=== PATIENT | female | born 1985 | race Caucasian/White ===

== ENCOUNTER → 2017-10-12 09:09 | Outpatient (CLI) | payer MEDICAID, SELFPAY ==
--- NOTE | 2017-10-12 09:12 | US_ITS ---
STUDY: ULTRASOUND BREAST - LEFT REASON FOR EXAM: Female, 31 years old. Pain in the left breast. TECHNIQUE: Axial and longitudinal images of the LEFT breast were performed with a high resolution ultrasound transducer. COMPARISON: Comparison is made with prior mammogram done earlier today. FINDINGS: LEFT Breast: The lateral aspect of the left breast was examined by ultrasound. There is homogeneous fibroglandular tissue. No solid or cystic mass lesion is seen. US/Breast Limited Unilateral IMPRESSION: Unremarkable sonographic examination of the lateral aspect of the left breast. ASSESSMENT CATEGORY: BIRADS Category 1: Negative. A letter regarding these results will be sent to the patient by the facility within 30 days. Electronically Signed: Marko Martinez MD at 11:24 EDT Tel [phone], Service support ,
--- NOTE | 2017-10-12 09:12 | BI_ITS ---
MAMMOGRAPHY - BILATERAL DIAGNOSTIC REASON FOR EXAM: Female, 31 years old. Left lateral breast tenderness. Prior left breast biopsy. PERTINENT HISTORY: Grandmother with breast cancer. TECHNIQUE: Digital bilateral breast elis (3D mammographic acquisition) in the CC and MLO projections. 2-D mediolateral oblique (MLO) and craniocaudad (CC) views of both breasts were obtained. CAD: Full Field Digital Mammography with Computer Added Detection was performed. COMPARISON: None. Baseline examination. FINDINGS: Breast Composition: The breasts are heterogeneously dense, which may obscure small masses. There are no dominant masses or suspicious calcifications. No other significant abnormalities are identified. BI/DIAG MAMM W/CAD, BILAT IMPRESSION: Negative diagnostic mammogram. With the patient's history of left lateral breast tenderness, correlation with ultrasound is recommended. ASSESSMENT CATEGORY: BIRADS Category 0: Incomplete. Need additional imaging evaluation. A letter regarding these results will be sent to the patient by the facility within 30 days. Approximately 10% of breast cancers are not detected by mammography. A normal mammogram should not delay biopsy of a clinically suspicious abnormality. Electronically Signed: Marko Martinez MD at 10:19 EDT Tel [phone], Service support ,
== END ==
PROVIDERS: Visit Provider Obstetrics & Gynecology
DX: N63.0 Unspecified lump in unspecified breast (principal)
CPT/HCPCS: 76642; 77062; 77066; G0279

== ENCOUNTER 2018-03-10 20:09 | Emergency (ER) | payer MEDICAID, SELFPAY ==
[2018-03-10 20:11] VITALS: BP 157/92; PULSE 88; RESP 18; TEMP 35.5; O2SAT 99; BMI 30.5
--- NOTE | 2018-03-10 20:25 | RAD_ITS ---
STUDY: X-RAY CHEST REASON FOR EXAM: Female, 32 years old. Dyspnea and hypertension TECHNIQUE: PA and lateral COMPARISON: None. FINDINGS: The lungs are clear and expanded. There is no demonstrated pleural abnormality. Normal size heart. Normal mediastinum and momo. Normal visualized pulmonary arteries. Normal visualized aortic arch and descending thoracic aorta. Normal visualized thoracic spine. Normal visualized ribs, clavicles, and shoulders. There is no demonstrated abnormality of the visualized soft tissue structures of the upper abdomen. RAD/Chest PA and Lateral IMPRESSION: Normal x-ray examination of the chest. Electronically Signed: Bakari Michele MD at 21:22 EST , Service support ,
--- NOTE | 2018-03-10 20:25 | EKG12_ITS ---
Test Reason : HTN Blood Pressure : / mmHG Vent. Rate : 091 BPM Atrial Rate : 091 BPM P-R Int : 134 ms QRS Dur : 088 ms QT Int : 356 ms P-R-T Axes : 050 022 029 degrees QTc Int : 437 ms Normal sinus rhythm Normal ECG Confirmed by LIANNA MAR, SALVADOR ([id number]), electronic news gathering editor BARI TRAVIS ([id number]) on 03/12/2018 2:30:17 PM Referred By: HERMELINDA Confirmed By:SALVADOR DSOUZA MD
[2018-03-10 20:38] VITALS: BP 124/92; PULSE 93; RESP 22; O2SAT 98
[2018-03-10 20:47] LABS: Absolute Lymphocyte Count 2.96 X10^3/ul (0.83-4.51); Absolute Neutrophil Count 3.6 X10^3/uL (2.0-7.7); Basophil# 0.03 X10^3/uL; Basophil% 0.4 % (0-1); Eosinophil# 0.12 X10^3/uL; Eosinophils% 1.6 % (0-5); Hematocrit 37.4 % (37-47); Hemoglobin 12.1 g/dl (12.0-15.0); Lymphocyte # 2.96 X10^3/ul (4.0); Lymphocyte % 40.3 % (19-41); Mean Corp Hgb Conc 32.4 g/gl (32-36); Mean Corpuscular Hgb 28.7 pg (27.0-32.0); Mean Corpuscular Volume 88.8 fL (81-99); Mean Platelet Vol. 10.1 fl (6.2-12.0); Monocyte# 0.67 X10^3/uL; Monocyte% 9.1 % (0-10); Neutrophil # 3.56 X10^3/uL (2.7-7.7); Neutrophil % 48.6 % (47-70); Platelet Count 296 K/mm3 (150-450); RBC Distribution Width CV 12.6 % (11.6-14.6); RBC Distribution Width SD 40.4 fl (35.1-43.9); Red Blood Count 4.21 M/mm3 (4.2-5.4); White Blood Count 7.3 K/mm3 (4.4-11.0)
[2018-03-10 20:50] LABS: POSITIVE COUNT NO; POSITIVE DIFFERENTIAL NO; POSITIVE MORPHOLOGY NO
[2018-03-10 20:58] LABS: D-Dimer Quantitative (DVT/PE) 0.33 FEU/ug/m (0.27-0.49)
[2018-03-10 20:59] LABS: BUN 9 mg/dL (7-18); Creatinine, Serum 0.57 mg/dL (0.55-1.02); Estimated Creatinine Clearance 135.24 ml/min; Glucose 90 mg/dL (74-106)
--- NOTE | 2018-03-10 20:59 | ED.VISSUMM ---
- ER Visit Summary Date of Service: 03/10/18 Chief Complaint: [Hypertension] History of Present Illness: The patient is a 32 F [presents the emergency department complaint of hypertension that she noticed today while at work. Patient states that she felt somewhat short of breath and decided to check her blood pressure and noted that it was elevated patient then had it repeated and at one point it was as high as 173/122. Patient states that she is intermittently checked her blood pressure over the last year and it would get as high as 140 systolic. Patient currently not being treated for hypertension. 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 Patient denies any recent illness. She denies any shortness of breath currently. She has not had any recent travel or surgery. Patient states that she was advised by her superiors at work to get evaluated.] Physical Examination: [HEENT-PERRLA, EOMI. Cranial nerves II through XII grossly intact. TMs clear. Mucous membranes moist. No adenopathy. Cardiovascular-regular rate and rhythm without murmur or ectopy Lungs-clear to auscultation, chest wall stable without crepitus or subcu emphysema Abdomen-normoactive bowel sounds, soft, nontender, no rebound or rigidity, no peritoneal signs. Extremities-intact ?4, normal range of motion, normal pulses, atraumatic] Test Results: [EKG obtained arrival shows sinus rhythm with a ventricular rate of 91 bpm with no acute I segment changes. CBC with differential was normal. Chemistries unremarkable. D-dimer was normal 0.33. Chest x-ray was normal.] Emergency Department Course and Treatment: [No treatment in the emergency department. Without any treatment her current blood pressure is 124/92.] Treatment Plan: [Patient advised to keep a journal of her blood pressures over the next week and to only check her blood pressure twice a day once in the morning and once in the evening. Patient also advised to follow-up with her primary care physician then to determine if any antihypertensives would be warranted.] Disposition: [Discharged home in stable condition] Impression: [Hypertension] This note was generated with [employer] software. It may contain incorrect words, spelling, and punctuation that were not noted in review of the chart prior to signing ED Disposition - Plan for ED Patient: Chief Complaint: Hypertension Referrals: Johnson Degroot MD [Primary Care Provider] -
[2018-03-10 21:00] LABS: Anion Gap 5 (5-15); BUN/Creat Ratio 15.7 RATIO (10-20); Calcium,Total 8.6 mg/dL (8.5-10.1); Chloride 107 mmol/L (98-107); EST Glomerular Filtration Rate 128 mL/min (>60); Est Glom Filt Rate - Afr Amer 155 mL/min (>60); Potassium 3.5 mmol/L (3.5-5.1); Sodium Level 140 mmol/L (136-145)
--- NOTE | 2018-03-10 21:02 | ED.DEP ---
ED Disposition - Plan for ED Patient: Chief Complaint: Hypertension Instructions: ED Hypertension Poss Referrals: Johnson Degroot MD [Primary Care Provider] - 5-7 Days
[2018-03-10 21:06] VITALS: BP 119/88; PULSE 81; RESP 20; O2SAT 98
[2018-03-10 21:12] VITALS: BP 119/88; PULSE 81; RESP 19; O2SAT 98
--- OUTSIDE RECORDS SUMMARY | 2018-05-06 04:37 | XMS RPT_ITS ---
:1985 Author Organization [facility] Care Team Providers Name Role Phone Primay Care Physicia, No Primary Care Unavailable Jamal Mane Attending Unavailable Kenan Buckley Attending Unavailable Primay Care Physicia, No Primary Care Unavailable Luis Angel Pickard Attending Unavailable Johnson Degroot Primary Care Unavailable PROBLEMS PROBLEMS DATE TYPE CONDITION / CODE ATTENDING STATUS SOURCE 04/28/2017 Unknown K04.7 - Inge Maneo Active [place] Periapical Community abscess without Hospital sinus / Repository K04.7(ICD-10) PROCEDURES PROCEDURES No Procedure Records FoundRESULTS RESULTS 12 LEAD ELECTROCARDIOGRAM Observed: 03/12/2018 Status: F Source: [place] 2:30 PM [facility] REPOSITORY [facility] Cardiovascular Services [address] [place] [address] 12 Lead EKG 03/10/182032 MR#: [id number] Acct: [id number] Name: FABBY RIVERO Rep #: [id number] : 1985 32 From: Suhail Dsouza MD Attending Dr: Status: DEP ER Ordering Dr: Luis Angel Pickard DO Date: 03/10/18 Location: ED Sex: F C Admitted: Test Reason : HTN Blood Pressure : / mmHG Vent. Rate : 091 BPM Atrial Rate : 091 BPM P-R Int : 134 ms QRS Dur : 088 ms QT Int : 356 ms P-R-T Axes : 050 022 029 degrees QTc Int : 437 ms Normal sinus rhythm Normal ECG Confirmed by SUHAIL DSOUZA MD ([id number]), medical transcription editor BARI TRAVIS ([id number]) on 03/12/2018 2:30:17 PM Referred By: HERMELINDA Confirmed By:SUHAIL DSOUZA MD 03/12/18 1430 Date Suhail Dsouza MD CC: Johnson Degroot MD; Luis Angel Pickard DO Signed EMERGENCY DEPARTMENT Observed: 03/10/2018 Status: F Source: [place] SUMMARY 9:02 PM [facility] REPOSITORY [facility] Medical Records Department [address] [place] [address] Emergency Department Summary 03/10/182058 MR#: [id number] Acct: [id number] Name: FABBY RIVERO Rep #: [id number] : 1985 32 From: Luis Angel Pickard DO PCP: Johnson Degroot MD Status: REG ER - ER Visit Summary Date of Service: 03/10/18 Chief Complaint: [Hypertension] History of Present Illness: The patient is a 32 F [presents the emergency department complaint of hypertension that she noticed today while at work. Patient states that she felt somewhat short of breath and decided to check her blood pressure and noted that it was elevated patient then had it repeated and at one point it was as high as 173/122. Patient states that she is intermittently checked her blood pressure over the last year and it would get as high as 140 systolic. Patient currently not being treated for hypertension. 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 Patient denies any recent illness. She denies any shortness of breath currently. She has not had any recent travel or surgery. Patient states that she was advised by her superiors at work to get evaluated.] Physical Examination: [HEENT-PERRLA, EOMI. Cranial nerves II through XII grossly intact. TMs clear. Mucous membranes moist. No adenopathy. Cardiovascular-regular rate and rhythm without murmur or ectopy Lungs-clear to auscultation, chest wall stable without crepitus or subcu emphysema Abdomen-normoactive bowel sounds, soft, nontender, no rebound or rigidity, no peritoneal signs. Extremities-intact 4, normal range of motion, normal pulses, atraumatic] Test Results: [EKG obtained arrival shows sinus rhythm with a ventricular rate of 91 bpm with no acute I segment changes. CBC with differential was normal. Chemistries unremarkable. D-dimer was normal 0.33. Chest x-ray was normal.] Emergency Department Course and Treatment: [No treatment in the emergency department. Without any treatment her current blood pressure is 124/92.] Treatment Plan: [Patient advised to keep a journal of her blood pressures over the next week and to only check her blood pressure twice a day once in the morning and once in the evening. Patient also advised to follow-up with her primary care physician then to determine if any antihypertensives would be warranted.] Disposition: [Discharged home in stable condition] Impression: [Hypertension] This note was generated with Inverted Edge dictation software. It may contain incorrect words, spelling, and punctuation that were not noted in review of the chart prior to signing ED Disposition - Plan for ED Patient: Chief Complaint: Hypertension Referrals: Johnson Degroot MD [Primary Care Provider] - What to do if you have Problems For any increased pain, shortness of breath, bleeding, nausea or vomiting, chest pain, or any unexpected problems, contact your Primary Care Provider. Call [facility] ([phone]) or report to the closest Emergency Room. Call 911 if necessary. 03/10/182101 <Electronically signed by Luis Angel Pickard DO> Date Luis Angel Pickard DO Cosigner Signature (If Indicated): Date CC: Johnson Degroot MD DISCHARGE INSTRUCTION Observed: 03/10/2018 Status: F Source: RIK 9:02 PM [facility] REPOSITORY [facility] Medical Records Department [address] [place] [address] Discharge Instruction 03/10/182101 MR#: [id number] Acct: [id number] Name: FABBY RIVERO Rep #: [id number] : 1985 32 From: Luis Angel Pickard DO PCP: Johnson Degroot MD Status: REG ER ED Disposition - Plan for ED Patient: Chief Complaint: Hypertension Instructions: ED Hypertension Poss Referrals: Johnson Degroot MD [Primary Care Provider] - 5-7 Days What to do if you have Problems For any increased pain, shortness of breath, bleeding, nausea or vomiting, chest pain, or any unexpected problems, contact your Primary Care Provider. Call [facility] ([phone]) or report to the closest Emergency Room. Call 911 if necessary. 03/10/182101 <Electronically signed by Luis Angel Pickard DO> Date Luis Angel Pickard DO Cosigner Signature (If Indicated): Date CC: Johnson Degroot MD CBC W/DIFF, AUTOMATED Collected: 03/10/2018 Status: F Source: RIK 8:35 PM [facility] REPOSITORY TYPE CODE TESTS RESULT OUT OF RANGE REFERENCE UNITS LAB L100.1000 4.4-11.0 K/mm3 Normal WBC 7.3 LAB L100.1200 4.2-5.4 M/mm3 Normal RBC 4.21 LAB L100.1300 12.0-15.0 g/dl Normal HGB 12.1 LAB L100.1400 37-47 % Normal HCT 37.4 LAB L100.1500 81-99 fL Normal MCV 88.8 LAB L100.1600 27.0-32.0 pg Normal MCH 28.7 LAB L100.1700 32-36 g/gl Normal MCHC 32.4 LAB L100.1810 11.6-14.6 % Normal RDW CV 12.6 LAB L100.1820 35.1-43.9 fl Normal RDW SD 40.4 LAB L100.1900 150-450 K/mm3 Normal PLT 296 LAB L100.2000 6.2-12.0 fl Normal MPV 10.1 LAB L100.2100 47-70 % Normal NEUT% 48.6 LAB L100.2200 19-41 % Normal LY% 40.3 LAB L100.2300 0-10 % Normal MONO% 9.1 LAB L100.2400 0-5 % Normal EO% 1.6 LAB L100.2500 0-1 % Normal BASO% 0.4 LAB L100.2550 0.0-0.9 % Normal IM GRAN % 0.000 Result Comment: IG% - Immature Granulocytes (promyelocytes, myelocytes and metamyelocytes) > 1% indicates that a LEFT SHIFT is Present. LAB L100.2620 2.0-7.7 X10 3/uL Normal Absolute Neut 3.6 LAB L100.2720 0.83-4.51 X10 3/ul Normal Absolute Lymph 2.96 Performed By: #### L100.0100 #### [facility] [address] [place], [place], [id number] D-DIMER QUANTITATIVE Collected: 03/10/2018 Status: F Source: RIK (DVT/PE) 8:35 PM [facility] REPOSITORY TYPE CODE TESTS RESULT OUT OF RANGE REFERENCE UNITS LAB L300.8000 0.27-0.49 FEU/ug/m Normal D-DIMER 0.33 QUANT Result Comment: NORMAL D-Dimer level (<0.50) indicates no DVT or PE. Performed By: #### L300.8000 #### [facility] [address] [place], [place], [id number] BASIC METABOLIC Collected: 03/10/2018 Status: F Source: RIK PROFILE (BMP) 8:35 PM [facility] REPOSITORY TYPE CODE TESTS RESULT OUT OF RANGE REFERENCE UNITS LAB L501.0100 74-106 mg/dL Normal GLU 90 Result Comment: Please note revised GLUCOSE reference range effective 2017. LAB L501.1000 7-18 mg/dL Normal BUN 9 LAB L501.1100 0.55-1.02 mg/dL Normal CREAT,SERUM 0.57 Result Comment: The validity of the calculated GFR AND GFRAA in patients over 70 years has not been determined. Clinical correlation is essential. LAB L501.1110 >60 mL/min Normal EST GFR 128 Result Comment: Non- GFR Calc LAB L501.1115 >60 mL/min Normal EST GFR - AA 155 Result Comment: GFR Calc LAB L501.1255 ml/min Normal Estimated CRCL 135.24 LAB L501.1300 10-20 RATIO BUN/CRE Normal 15.7 LAB L501.2200 8.5-10 mg/dL .1 CA Normal 8.6 LAB L501.5300 136-14 mmol/L 5 NA Normal 140 LAB L501.5600 3.5-5. mmol/L 1 K Normal 3.5 LAB L501.5900 98-107 mmol/L CL Normal 107 LAB L501.6100 21.0-3 mmol/L 2.0 CO2 Normal 28.0 LAB L501.6200 5-15 GAP Normal 5 Performed By: #### L500.2500 #### [facility] [address] [place], [address] CHEST PA AND LATERAL Observed: 03/10/2018 Status: F Source: [place] 8:26 PM [facility] REPOSITORY [facility] Imaging Services [address] [place] [address] Chest PA and Lateral MR#: [id number] Acct: [id number] Name: FABBY RIVERO Rep #: [id number] : 1985 F 32 From: Bakari Michele MD PCP: Johnson Degroot MD Status: DEP ER Study: Chest PA and Lateral Date of Exam: 03/10/18 Exam# [id number] Ordering Dr: Luis Angel Pickard DO STUDY: X-RAY CHEST REASON FOR EXAM: Female, 32 years old. Dyspnea and hypertension TECHNIQUE: PA and lateral COMPARISON: None. FINDINGS: The lungs are clear and expanded. There is no demonstrated pleural abnormality. Normal size heart. Normal mediastinum and momo. Normal visualized pulmonary arteries. Normal visualized aortic arch and descending thoracic aorta. Normal visualized thoracic spine. Normal visualized ribs, clavicles, and shoulders. There is no demonstrated abnormality of the visualized soft tissue structures of the upper abdomen. RAD/Chest PA and Lateral IMPRESSION: Normal x-ray examination of the chest. Electronically Signed: Bakari Michele MD at 21:22 EST , Service support , CC: Johnson Degroot MD; Luis Angel Pickard DO Casting Technician: Signed DIAG MAMM W/CAD, Observed: 10/12/2017 Status: F Source: RIK BILAT 9:13 AM [facility] REPOSITORY [facility] Imaging Services [address] [place] [address] DIAG MAMM W/CAD, BILAT MR#: [id number] Acct: [id number] Name: FABBY RIVERO Rep #: [id number] : 1985 F 31 From: Marko Martinez MD PCP: Care Physician, No Primary Status: [facility] CLI Study: DIAG MAMM W/CAD, BILAT Date of Exam: 10/12/17 Exam# [id number] Ordering Dr: Kenan Buckley MD MAMMOGRAPHY - BILATERAL DIAGNOSTIC REASON FOR EXAM: Female, 31 years old. Left lateral breast tenderness. Prior left breast biopsy. PERTINENT HISTORY: Grandmother with breast cancer. TECHNIQUE: Digital bilateral breast elis (3D mammographic acquisition) in the CC and MLO projections. 2-D mediolateral oblique (MLO) and craniocaudad (CC) views of both breasts were obtained. CAD: Full Field Digital Mammography with Computer Added Detection was performed. COMPARISON: None. Baseline examination. FINDINGS: Breast Composition: The breasts are heterogeneously dense, which may obscure small masses. There are no dominant masses or suspicious calcifications. No other significant abnormalities are identified. BI/DIAG MAMM W/CAD, BILAT IMPRESSION: Negative diagnostic mammogram. With the patient's history of left lateral breast tenderness, correlation with ultrasound is recommended. ASSESSMENT CATEGORY: BIRADS Category 0: Incomplete. Need additional imaging evaluation. A letter regarding these results will be sent to the patient by the facility within 30 days. Approximately 10% of breast cancers are not detected by mammography. A normal mammogram should not delay biopsy of a clinically suspicious abnormality. Electronically Signed: Marko Martinez MD at 10:19 EDT Tel [phone], Service support , CC: No Primary Care Physician; Kenan Buckley MD Casting Technician: Signed BREAST LIMITED Observed: 10/12/2017 Status: F Source: RIK UNILATERAL 9:13 AM [facility] REPOSITORY [facility] Imaging Services [address] [place] [address] Breast Limited Unilateral MR#: [id number] Acct: [id number] Name: FABBY RIVERO Rep #: [id number] : 1985 F 31 From: Marko Martinez MD PCP: Care Physician, No Primary Status: REG CLI Study: Breast Limited Unilateral Date of Exam: 10/12/17 Exam# [id number] Ordering Dr: Kenan Buckley MD STUDY: ULTRASOUND BREAST - LEFT REASON FOR EXAM: Female, 31 years old. Pain in the left breast. TECHNIQUE: Axial and longitudinal images of the LEFT breast were performed with a high resolution ultrasound transducer. COMPARISON: Comparison is made with prior mammogram done earlier today. FINDINGS: LEFT Breast: The lateral aspect of the left breast was examined by ultrasound. There is homogeneous fibroglandular tissue. No solid or cystic mass lesion is seen. US/Breast Limited Unilateral IMPRESSION: Unremarkable sonographic examination of the lateral aspect of the left breast. ASSESSMENT CATEGORY: BIRADS Category 1: Negative. A letter regarding these results will be sent to the patient by the facility within 30 days. Electronically Signed: Marko Martinez MD at 11:24 EDT Tel [phone], Service support , CC: No Primary Care Physician; Kenan Buckley MD Casting Technician: Signed EMERGENCY DEPARTMENT Observed: 04/28/2017 Status: F Source: [place] SUMMARY 7:34 PM [facility] REPOSITORY [facility] Medical Records Department [address] [place] [address] Emergency Department Summary 04/28/17 1929 MR#: [id number] Acct: [id number] Name: FABBY RIVERO Rep #: [id number] : 1985 31 From: Jamal Mane MD PCP: Care Physician, No Primary Status: REG ER - ER Visit Summary Date of Service: 04/28/17 Chief Complaint: Left upper tooth pain History of Present Illness: The patient is a 31 F who presents because of severe left upper tooth pain started early this morning. She states she has gotten some relief with ibuprofen. She denies fever, chills or night sweats. She denies a traumatic fever, murmur, SBE, IV drug use or be immune suppressed. She denies difficulty opening close her mouth completely. She denies any facial swelling or redness. She denies any ocular, visual or auditory symptoms. Physical Examination: Vital signs are marked for an elevated blood pressure 151/93. Pupils equal round reactive. Extra muscle intact. There is no TMJ tenderness. There is no trismus or malocclusion. Patient has a large caries involving the pulp second left upper molar with tenderness to percussion. There is no evidence of a periodontal abscess. Trachea is midline. Heart is regular without murmur, gallop or rub. S1 and S2 are normal. Lungs are clear to auscultation with good movement of air bilaterally. Test Results: None Emergency Department Course and Treatment: Patient was treated with Pen-Vee K and one Grafton tablet. Treatment Plan: She was instructed take 4 ibuprofen every 8 hours, penicillin 4 times a day and Grafton as needed for severe pain. She also was told to call a dentist since she must see a dentist otherwise her condition will worsen. Disposition: Discharged to home Impression: 1. Dental carry second left upper molar with exposure of pulp 2. Periapical abscess 3. Odontalgia secondary to dental carry This note was generated with Inverted Edge dictation software. It may contain incorrect words, spelling, and punctuation that were not noted in review of the chart prior to signing ED Disposition - Plan for ED Patient: Disposition: Home or Assisted Living Chief Complaint: Dental Instructions: ED Abscess Dental, ED Hypertension Poss Prescriptions: Hydrocodone Bitart/Apap 5-325 [Grafton 5MG-325MG] 1 tab PO Q6H PRN PRN #10 tab PRN Reason: Pain Penicillin V Potassium 500 mg PO 4X/DAY #40 tab Referrals: Care Physician,No Primary [Primary Care Provider] - Bowen Duque MD [STAFF PHYSICIAN] - Additional Instructions: You must call for a dentist appointment to be seen. You need to follow-up with the doctor you were assigned to, Dr. Bowen Duque for blood pressure check in 1-2 weeks What to do if you have Problems For any increased pain, shortness of breath, bleeding, nausea or vomiting, chest pain, or any unexpected problems, contact your Primary Care Provider. Call [facility] ([phone]) or report to the closest Emergency Room. Call 911 if necessary. 04/28/171933 <Electronically signed by Jamal Mane MD> Date Jamal Mane MD Cosigner Signature (If Indicated): Date CC: No Primary Care Physician; Bowen Duque MD ALLERGIES ALLERGIES DATE TYPE / CODE NAME / CODE REACTION SEVERITY SOURCE 03/10/2018 Drug No Known Unknown [facility] Allergy/4160 Allergies/F00 Hospital 76668(SNOMED [id number](RXNOR Repository CT) M) ENCOUNTERS ENCOUNTERS ADMIT/DISCHARGE ACCOUNT ADMITTING ENCOUNTER LOCATION SOURCE NUMBER CLASS 03/10/2018/ [id number] Emergency [place] [facility] 8 1 [facility] ing:ED Repository 10/12/2017 [id number] Ambulatory [place] [facility] ing:OPBI Repository 04/28/2017/ [id number] Emergency [place]ik [place] 8 7 [facility] ing:ED Repository PAYERS PAYERS ENCOUNTER GUARANTOR PAYER SUBSCRIBER SOURCE 03/10/2018 FABBY A Primary FABBY A [place] [id number] Insurance:CARESOURCEP [id number] [address]Eme: [id number] Repository Date:2018-03-10P O ) [address]ATTN: [place] [address]LK: 03/10/2018 Secondary NOT GIVENUNK [place] Insurance:SELF PAY [facility] Number: Effective Repository Date:2018-03-10 10/12/2017 Fabby A Primary Fabby A [place] [id number] [facility] Number: [id number] [id number] Repository [address]Dva: [phone]) Date:2017-10-09P O [phone] () [address]ATTN: [place] [address]RS: 10/12/2017 Secondary NOT GIVENUNK [place] Insurance:SELF PAY [facility] Number: Effective Repository Date:2017-10-09 04/28/2017 Fabby A Primary Fabby A [place] [id number] Insurance:CARESOURCEP PetrosDOB: [facility] [place] Number: [id number], [place] [id number] Repository [address]Bsk: ([phone]) Date:2017-04-28P [phone] () [address]ATTN: [place] [address]CA: 04/28/2017 Secondary NOT GIVENUNK [place] Insurance:SELF PAY [facility] Number: Effective Repository Date:2017-04-28
== END 2018-03-10 21:13 | disposition home or self-care (01) ==
LOC: ED 20:54
PROVIDERS: Emergency Provider Emergency Medicine; Family Provider Family Medicine; PCP Family Medicine
DX: I10 Essential (primary) hypertension (principal); Z72.0 Tobacco use
CPT/HCPCS: 71046; 80048; 85025; 85379; 93005; 99285; A4216

== ENCOUNTER → 2019-12-27 12:59 | Outpatient (CLI) | payer MEDICAID, SELFPAY ==
--- NOTE | 2019-12-27 13:10 | RAD_ITS ---
STUDY: X-RAY - LUMBAR SPINE REASON FOR EXAM: Female, 34 years old. LUMBAR STRAIN, BACK PAIN FOR YEARS TECHNIQUE: 5 view(s) of the lumbar spine were obtained. COMPARISON: None FINDINGS: Normal lumbar lordosis. There is no substantial scoliosis. There is a normal alignment of the vertebrae. There is mild multilevel spondylosis. There is moderate disc space narrowing L4-L5 and L5-S1 with osteophytosis. There is bilateral neural foraminal narrowing at L4-L5 and L5-S1. There is partial visualization of tubal ligation clips. RAD/L/S Spine Min 4 Views IMPRESSION: Multilevel degenerative change most significant at L4-L5 L5-S1.. Electronically Signed: Herminia Aguilar MD at 6:59 EDT Tel , Service support ,
== END ==
PROVIDERS: PCP Family Medicine; Referring Provider Chiropractor; Visit Provider Chiropractor
DX: S33.5XXA Sprain of ligaments of lumbar spine, initial encounter (principal)
CPT/HCPCS: 72100; 72110

== ENCOUNTER 2020-03-22 10:00 | Outpatient (RCR) | payer MEDICAID, SELFPAY ==
--- NOTE | 2020-02-02 14:57 | HP.PTEVAL_ITS ---
Patient's Visit Information FABBY RIVERO is a 34 year old F referred to Physical Therapy by Dr. Jaxon Fields DC with a diagnosis of Lumbar Strain. Date of Evaluation: 02/02/20 Physical Therapist: EVERT Rocah - Visit Plan Frequency: 2x /Week Duration: 4 Weeks Plan: 2X/ week for 4 weeks for core stability, postural exercises, scapular exercises, hip strengthening with HEP and modalities if bneeded. - Subjective Pt has been going to the Chiropractor and he is not able to help her and sent her here. She has narrowing of disc spaces and some spurs via x-ray. She has been having back pain since she was a teenager. The intensity has not increased but freq has increased. 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 Every once in awhile she has tingling in her hand but nothing in her legs. She reports no weakness in her legs. 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 Middle of back around L4-L5 area. It does not travel into butt or groin. Some days she takes IBpro and Tylenol but not even once a week. Sometimes she sits alot. It is when she goes to stand up and bending and getting out of bed in the morning. No MRI at this point. [facility] has to wait to next month. Pt sleeps in a ball when she sleeps. - Pain Back Pain Intensity (Out of 10): 0 Pain Intensity Range: 5 - Objective Gait: Walks with normal gait pattern with decrease trunk rotation. Trunk AROM: flex 75%, ext 50% wth increase catching in LB, SB B 75% with increase pain in middle of LB, Rot B 75%. LE MMT: Pt is able to walk on heels and toes, R hipext 3+/5, L hip ext 3-/4, L hip abd 3+/5 and R hip abd 4-/5, Hip flex B 4-/5, B knee flex. ext 4/5 B. Press ups X 5 increase arm weakness and could not complete. Standing ext X 10 over mat table pt had increase back pain at mid point but no pain at end range and then increase pain coming fw into flexion past neutral. -SLUMP testB. -SLR B. Increasd hamstring snd hip flexor tightness - Goals Goal 1:: Sit with corrected posture in L-spine and c-spine Goal Time Frame: 4-6 Weeks Goal 2:: Increase B hip strength by 1/2 muscle grade (at time of eval: LE MMT: Pt is able to walk on heels and toes, R hipext 3+/5, L hip ext 3-/4, L hip abd 3+/5 and R hip abd 4-/5, Hip flex B 4-/5, B knee flex. ext 4/5 B). Goal Time Frame: 4-6 Weeks Goal 3:: Decrease daily back pain to 1/10 with ADL's Goal Time Frame: 4-6 Weeks - Rehabilitation Potential Rehabilitation Potential: Good - Anticipated Interventions Patient/Client Instruction: Educate patient on: Condition, Plan of Care For the Purpose of:: To decrease pain, To increase ROM, To improve nutrient delivery to tissue, To improve muscle performance and motor function, To improve ability to perform ADL's, To increase tolerance to activity/condition/position, To improve performance and independence with ADL's, To decrease level of supervision to perform tasks, To improve ability of physical actions for home/community/work/leisure, To improve gait and locomotor functions, To improve health of tissue, To increase flexibility/ROM Therapeutic Exercise to Include: Strength training, Postural training, Flexibilty training, Neuromotor development, Active ROM, Dynamic Lumbar Stabilization, Consuelo Exercises, Scapular Strength/Stabilization For the Purpose of:: To decrease pain, To increase ROM, To improve nutrient delivery to tissue, To increase oxygenation perfusion, To improve muscle performance and motor function, To improve ability to perform ADL's, To increase tolerance to activity/condition/position, To improve performance and independence with ADL's, To decrease level of supervision to perform tasks, To improve ability of physical actions for home/community/work/leisure, To improve gait and locomotor functions, To improve health of tissue, To decrease soft tissue restriction, To increase flexibility/ROM Manual Therapy Techniques to Include: Mobilization, Passive ROM, Soft tissue mobilization For the Purpose of:: To decrease pain, To increase ROM, To improve nutrient delivery to tissue, To improve muscle performance and motor function, To improve ability to perform ADL's, To increase tolerance to activity/condition/position, To decrease level of supervision to perform tasks, To improve gait and locomotor functions, To improve health of tissue, To decrease soft tissue restriction, To increase flexibility/ROM IF ES: Yes Cryotherapy (ice pack, ice massage): Yes Thermo therapy (hot pack): Yes Ultrasound (thermal/non thermal): Yes For the Purpose of:: To decrease pain, To decrease swelling/inflammation, To increase ROM, To improve nutrient delivery to tissue, To improve muscle performance and motor function Thank you for the opportunity to evaluate your patient. For Medicare and Medicare HMO plans, please review the plan of care and approve it. It will need to be FAXED BACK to us at [phone] for Medicare purposes. For Medicare only, by signing this I certify the plan of care. Please let me know if there are questions or concerns regarding this plan of care. Physician Signature: Date:
--- NOTE | 2020-05-22 09:38 | HP.PT.NRP ---
FABBY RIVERO was seen in my office for initial evaluation on 02/02/20. The following Plan of Care was established for this patient: Initial Frequency: 2x /Week Initial Duration: 4 Weeks Patient/Client Instruction: Educate patient on: Condition, Plan of Care For the Purpose of:: To decrease pain, To increase ROM, To improve nutrient delivery to tissue, To improve muscle performance and motor function, To improve ability to perform ADL's, To increase tolerance to activity/condition/position, To improve performance and independence with ADL's, To decrease level of supervision to perform tasks, To improve ability of physical actions for home/community/work/leisure, To improve gait and locomotor functions, To improve health of tissue, To increase flexibility/ROM Therapeutic Exercise to Include: Strength training, Postural training, Flexibilty training, Neuromotor development, Active ROM, Dynamic Lumbar Stabilization, Consuelo Exercises, Scapular Strength/Stabilization For the Purpose of:: To decrease pain, To increase ROM, To improve nutrient delivery to tissue, To increase oxygenation perfusion, To improve muscle performance and motor function, To improve ability to perform ADL's, To increase tolerance to activity/condition/position, To improve performance and independence with ADL's, To decrease level of supervision to perform tasks, To improve ability of physical actions for home/community/work/leisure, To improve gait and locomotor functions, To improve health of tissue, To decrease soft tissue restriction, To increase flexibility/ROM Manual Therapy Techniques to Include: Mobilization, Passive ROM, Soft tissue mobilization For the Purpose of:: To decrease pain, To increase ROM, To improve nutrient delivery to tissue, To improve muscle performance and motor function, To improve ability to perform ADL's, To increase tolerance to activity/condition/position, To decrease level of supervision to perform tasks, To improve gait and locomotor functions, To improve health of tissue, To decrease soft tissue restriction, To increase flexibility/ROM IF ES: Yes Cryotherapy (ice pack, ice massage): Yes Thermo therapy (hot pack): Yes Ultrasound (thermal/non thermal): Yes For the Purpose of:: To decrease pain, To decrease swelling/inflammation, To increase ROM, To improve nutrient delivery to tissue, To improve muscle performance and motor function This patient was last seen in our office 03/22/20. Pertinent comments regarding their Physical therapy will appear below: VALERIY PT At this point I will be discontinuing this patient from physical therapy. I would be happy to see this patient again in the future if found appropriate by the physician. Thank you! Estela Merchant, MPT
== END 2020-03-22 19:00 | disposition home or self-care (01) ==
LOC: PT 10:00
PROVIDERS: PCP Family Medicine; Referring Provider Chiropractor; Visit Provider Chiropractor
DX: S33.5XXD Sprain of ligaments of lumbar spine, subsequent encounter (principal); M51.36 Other intervertebral disc degeneration, lumbar region
CPT/HCPCS: 97110; 97161

== ENCOUNTER → 2020-12-13 12:11 | Outpatient (CLI) | payer MEDICAID, SELFPAY ==
[2020-12-19 08:15] LABS: HPV APTIMA, High Risk Negative (Negative)
[2020-12-19 08:18] LABS: HPV Reflexed? YES, CHARGE PATIENT
== END ==
PROVIDERS: PCP Family Medicine; Visit Provider Obstetrics & Gynecology
DX: Z12.4 Encounter for screening for malignant neoplasm of cervix (principal)
CPT/HCPCS: 87624; 88175; G0145

== ENCOUNTER → 2023-01-21 | Outpatient (CLI) | payer MEDICAID, SELFPAY ==
[2023-01-21 11:01] LABS: Amylase 44 U/L (25-115); Lipase 22 U/L (13-75)
== END | disposition home or self-care (01) ==
LOC: LABSPEC 10:16
PROVIDERS: PCP Family Medicine; Referring Provider Nurse Practitioner Acute Care; Visit Provider Nurse Practitioner Acute Care
DX: R10.11 Right upper quadrant pain (principal)
CPT/HCPCS: 82150; 83690

== ENCOUNTER 2023-01-27 19:39 | Observation (INO) | payer MEDICAID, SELFPAY ==
[2023-01-27 19:39] VITALS: BP 151/99; PULSE 74; RESP 15; TEMP 36.9; O2SAT 99; BMI 31.8
--- NOTE | 2023-01-27 19:52 | US_ITS ---
INDICATION: RUQ pain EXAMINATION: Ultrasound US Abdomen Limited (quadrant) TECHNIQUE: Sevilla scale and color doppler imaging was performed of the right upper quadrant. COMPARISON: No relevant prior comparison study available FINDINGS: LIVER: The liver is prominent in size measuring 19.2 cm CC. The liver is normal in shape and echogenicity. No focal hepatic lesion. No intrahepatic biliary ductal dilatation. There is no free fluid. GALLBLADDER AND BILIARY TREE: Normally distended gallbladder. Stones and sludge are seen in the gallbladder lumen. Stone measures up to 1.2 cm. Gallbladder wall thickening measuring up to 0.5 cm with wall edema. No significant pericholecystic fluid seen. The proximal common bile duct measures 0.7 cm, which is prominent for the patient''s age. Songraphic Wiggins''s sign: Positive. PANCREAS: Not well seen due to bowel gas. RIGHT KIDNEY: The right kidney measures 12.3 x 5.7 x 4.3 cm. No hydronephrosis or nephrolithiasis. No renal mass. US/Gallbladder IMPRESSION: Cholelithiasis with gallbladder wall thickening and edema. Positive sonographic Wiggins sign. These findings are consistent with acute cholecystitis. Electronically Signed: Mo Roe MD at 21:27 EDT ,
--- NOTE | 2023-01-27 19:53 | EDS_ITS ---
HPI History of Present Illness Chief Complaint: Abd Pain Informant: patient Onset/Context/Timing Onset: Weeks Narrative Narrative: Presents secondary to right upper quadrant abdominal pain. She has been having intermittent gallbladder attacks for quite some time. For the past week she has had constant pain in the right upper quadrant. She had an ultrasound a week ago at [facility] along with lab work. She is scheduled to have her gallbladder removed by Dr. Rucker on February 06. Patient presents to the ER tonight due to intractable pain. She is taking [place] and ibuprofen without improvement. [facility] Medical History Gallstones Home Medications NK 03/10/18 [History Last Taken Unknown] Allergy/AdvReac Type Severity Reaction Status Date / Time No Known Allergies Allergy Verified 01/27/23 19:43 Social History Smoking Status: Current every day smoker tobacco type: cigarettes ROS ROS ED Constitutional Constitutional ED: Reports sweats; Denies chills or fever(s) Eyes Eyes: Denies discharge from eye(s) ENT ENT ED: Denies discharge from eye(s), rhinorrhea or sore throat Cardiovascular Cardiovascular: Denies chest pain or palpitations Respiratory/Chest Respiratory/Chest: Denies cough or dyspnea Gastrointestinal Gastrointestinal: Reports abdominal pain and nausea; Denies diarrhea or vomiting Genitourinary Genitourinary ED: Denies dysuria Musculoskeletal Musculoskeletal: Denies back pain or extremity pain Integumentary Denies Abrasions or rash Neurologic Neurologic: Denies headache(s) or weakness Allergic/Immunologic Allergic/Immunologic ED: Denies lip swelling or urticaria EXAM Physical Exam Const Vital Signs: 01/27/23 19:39 Temperature 98.4 F Temperature Source Temporal Pulse Rate 74 Respiratory Rate 15 Blood Pressure 151/99 H Blood Pressure Mean 116 Pulse Ox 99 Oxygen Delivery Method Room Air Positive well nourished and well developed General Appearance ED: well developed HEENT Reports normocephalic and head/scalp atraumatic Eyes PERRL and EOMs intact bilaterally Neck supple Chest Wall inspection of chest normal and palpation of chest normal Resp normal respiratory effort and clear to auscultation bilaterally Cardio regular rate and regular rhythm GI GI Narrative: Moderate tenderness in the right upper quadrant. Hypoactive bowel sounds. Palpation: soft Extremity normal to inspection Neuro oriented x3 and no sensory deficits noted Sensorium / Orientation: alert Motor Exam: strength 5/5 throughout Psych mental status grossly normal Skin no rashes or lesions noted MDM MDM MDM Narrative Medical decision making narrative: IV line established. Patient given morphine and Zofran for pain and nausea. Labwork obtained to evaluate for leukocytosis, anemia, and electrolyte derangement. Right upper quadrant ultrasound obtained to evaluate gallbladder. Lab Data Attestation: I reviewed the patient's lab results. Labs: Laboratory Results - last 24 hr 01/27/23 20:00 WBC 8.1 RBC 4.37 Hgb 12.4 Hct 38.7 MCV 88.6 MCH 28.4 MCHC 32.0 RDW Std Deviation 40.4 RDW Coeff of Lucas 12.4 Plt Count 323 MPV 10.7 Immature Gran % (Auto) 0.200 Neut % (Auto) 58.1 Lymph % (Auto) 31.3 [place] % (Auto) 8.0 Eos % (Auto) 2.0 Baso % (Auto) 0.4 Absolute Neuts (auto) 4.7 Absolute Lymphs (auto) 2.54 Nucleated RBC % 0 Sodium 138 Potassium 3.9 Chloride 104 Carbon Dioxide 27.0 Anion Gap 7 BUN 8 Creatinine 0.67 Estim Creat Clear Calc 109.63 Est GFR (MDRD) Af Amer 127 Est GFR (MDRD) Non-Af 105 BUN/Creatinine Ratio 12.0 Glucose 107 H Calcium 9.2 Total Bilirubin 0.20 Direct Bilirubin 0.10 AST 41 H ALT 59 H Alkaline Phosphatase 161 H Total Protein 7.9 Albumin 3.0 L Globulin 4.9 H Lipase 20 Serum , Qual NEGATIVE Radiography Diagnostic Testing: Clinical Impression(s) from Imaging Studies Gallbladder Ultrasound 01/27/23 19:52 IMPRESSION: Cholelithiasis with gallbladder wall thickening and edema. Positive sonographic Wiggins sign. These findings are consistent with acute cholecystitis. Electronically Signed: Mo Roe MD at 21:27 EDT , Treatment and Re-Evaluation :: CBC was normal white count 8.1 with normal differential. Hemoglobin normal at 12.4. Chemistry studies are unremarkable. Bilirubin levels are normal, however AST is 41, ALT is 59, and alk phos is 161. Lipase is normal at 20. test is negative. Right upper quadrant ultrasound is obtained that reveals cholelithiasis with gallbladder wall thickening and edema consistent with acute cholecystitis. Positive sonographic Wiggins sign is noted. Patient is given a dose of Zosyn. I discussed her test results with her. She is comfortable staying here for her surgical procedure rather than transferring to [place]. I will speak with Dr. Bunn, on-call for surgery. Discharge Plan Dx/Rx/DC Orders Clinical Impression: Acute cholecystitis Disposition Disposition: Acute Care Hospital [facility]
[2023-01-27 20:25] LABS: Absolute Lymphocyte Count 2.54 X10^3/uL (0.83-4.51); Absolute Neutrophil Count 4.7 X10^3/uL (2.0-7.7); Basophil# 0.03 X10^3/uL; Basophil% 0.4 % (0-1); Eosinophil# 0.16 X10^3/uL; Hematocrit 38.7 % (37-47); Hemoglobin 12.4 g/dL (12.0-15.0); Lymphocyte # 2.54 X10^3/ul (0.83-4.51); Lymphocyte % 31.3 % (19-41); Mean Corpuscular Hgb 28.4 pg (27.0-32.0); Mean Corpuscular Volume 88.6 fL (81-99); Mean Platelet Vol. 10.7 fl (6.2-12.0); Monocyte# 0.65 X10^3/uL; NRBC Flagged by Analyzer 0 % (0-5); Neutrophil # 4.72 X10^3/uL (2.7-7.7); Neutrophil % 58.1 % (47-70); Platelet Count 323 K/mm3 (150-450); RBC Distribution Width CV 12.4 % (11.6-14.6); RBC Distribution Width SD 40.4 fl (35.1-43.9); Red Blood Count 4.37 M/mm3 (4.2-5.4); White Blood Count 8.1 K/mm3 (4.4-11.0)
[2023-01-27] MEDS: Morphine 4 MG/ML Syringe IV (20:25)
[2023-01-27] MEDS: Ondansetron 4 MG/2 ML Vial IV (20:25)
[2023-01-27] MEDS: 0.9% Normal Saline (1000mL) 1,000 ML 1000 ML IV (20:25)
[2023-01-27 20:34] LABS: Internal QC Validated? YES +Cl - CLEAR BKGD; Pregnancy, Serum, hCG Quali. NEGATIVE Negative
[2023-01-27 20:42] LABS: AST(SGOT) 41 U/L (15-37); Alanine Aminotransfer ALT/SGPT 59 U/L (13-56); Alkaline Phosphatase 161 U/L (45-117); Anion Gap 7 (5-15); BUN 8 mg/dL (7-18); Calcium,Total 9.2 mg/dL (8.5-10.1); Chloride 104 mmol/L (98-107); Creatinine, Serum 0.67 mg/dL (0.55-1.02); EST Glomerular Filtration Rate 105 mL/min (>60); Est Glom Filt Rate - Afr Amer 127 mL/min (>60); Estimated Creatinine Clearance 109.63 ml/min; Globulin 4.9 g/dL (2.2-4.2); Glucose 107 mg/dL (74-106); Lipase 20 U/L (13-75); Potassium 3.9 mmol/L (3.5-5.1); Protein, Total 7.9 g/dL (6.4-8.2); Sodium Level 138 mmol/L (136-145)
[2023-01-27 22:02] VITALS: BP 163/96; PULSE 76; RESP 18; TEMP 36; O2SAT 100
[2023-01-27] MEDS: Piperacil/Tazobactam 3.375 GM in 0.9% Normal Saline (50mL MB+) 50 ML IV (22:08)
[2023-01-27 23:12] VITALS: BMI 31.3
[2023-01-27 23:15] VITALS: BP 149/98; PULSE 70; RESP 17; TEMP 36.8; O2SAT 97
[2023-01-27] MEDS: 0.9% Normal Saline (1000mL) 1,000 ML 120 ML IV (23:20)
[2023-01-27] MEDS: Pantoprazole Sodium 40 MG in 0.9% Normal Saline (100mL MB+) 100 ML 330 MG IV (23:28)
[2023-01-28] VITALS (8 sets, daily range): BP systolic 122–149; BP diastolic 78–98; PULSE 72–83; RESP 16–18; TEMP 36.3–36.8; O2SAT 94–100
[2023-01-28] MEDS: Piperacil/Tazobactam 3.375 GM in 0.9% Normal Saline (50mL MB+) 50 ML IV ×2 (05:05→14:11)
[2023-01-28] MEDS: 0.9% Normal Saline (250mL Bag) 250 ML 15 ML IV (05:06)
--- NOTE | 2023-01-28 06:33 | PCM.HP.STD ---
HPI - General General Date of Admission: 01/27/23 HPI Narrative FABBY RIVERO, is a 37 F who presents to the ER due to a upper quadrant pain that did not improve after taking [place] and ibuprofen. Patient was scheduled to have a laparoscopic cholecystectomy Dr. Rucker on February 06, 2023. Patient states for the last week she has been having pain fairly often in the right upper quadrant. In hindsight patient thinks she has been having issues with her gallbladder for about a year. Patient did see her PCP previously for reflux also for weight loss. Patient has changed her diet and eating more healthy foods. Yesterday patient had homemade chicken needle soup and a banana and then had increased right upper quadrant pain that did not improve with [place] as she was given a short supply from her PCP and ibuprofen. Patient had an ultrasound showed thickened gallbladder wall, cholelithiasis, normal cystic duct, no pericholecystic fluid. Patient's white blood count was within normal limits with slight elevation of AST and ALT and alk phos in the ER last night. Patient states her pain did improve in the ER and still currently better than it was when she came in. Patient stopped her phentermine for wt loss Jan 19 due to her abd pain. COUNTS INCLUDE 234 BEDS AT THE [facility] Medical History Gallstones Home Medications norgestimate 0.25 mg-ethinyl estradiol 35 mcg tablet (Preble-Linyah) 1 tab PO DAILY control 01/28/23 [History Last Taken 01/24/23] phentermine 37.5 mg tablet 37.5 mg PO DAILY wt loss 01/28/23 [History Last Taken 01/24/23] Allergy/AdvReac Type Severity Reaction Status Date / Time No Known Allergies Allergy Verified 01/27/23 19:43 Social History Smoking Status: Former smoker Vital Signs Vital Signs Vital Signs: 01/27/23 19:39 01/27/23 22:02 01/27/23 23:15 Temperature 98.4 F 96.8 F L 98.3 F Temperature Source Temporal Oral Pulse Rate 74 76 70 Respiratory Rate 15 18 17 Blood Pressure 151/99 H 163/96 H 149/98 H Blood Pressure Mean 116 118 115 Blood Pressure Source Monitor Blood Pressure Position Semi-Fowlers Blood Pressure Location Left Arm Pulse Ox 99 100 97 Oxygen Delivery Method Room Air Room Air 01/28/23 05:15 Temperature 98.1 F Temperature Source Oral Pulse Rate 83 Respiratory Rate 17 Blood Pressure 133/91 H Blood Pressure Mean 105 Blood Pressure Source Monitor Blood Pressure Position Semi-Fowlers Blood Pressure Location Right Arm Pulse Ox 97 Oxygen Delivery Method Room Air Weight Weight: 200 lb 2.876 oz Body Mass Index (BMI) 31.3 Physical Exam Const alert, oriented x3 and no apparent distress HEENT normocephalic and head/scalp atraumatic Resp normal respiratory effort Cardio regular rate GI soft to palpation; Negative for non-distended Palpation: tender RUQ; Negative for guarding Extremity no clubbing, cyanosis or edema Neuro CN's II-XII intact bilaterally Psych mental status grossly normal Results Lab / Micro Data 01/28/23 06:20 01/27/23 20:00 Labs: Laboratory Results - last 24 hr 01/27/23 20:00: WBC 8.1, RBC 4.37, Hgb 12.4, Hct 38.7, MCV 88.6, MCH 28.4, MCHC 32.0, RDW Std Deviation 40.4, RDW Coeff of Lucas 12.4, Plt Count 323, MPV 10.7, Immature Gran % (Auto) 0.200, Neut % (Auto) 58.1, Lymph % (Auto) 31.3, [place] % (Auto) 8.0, Eos % (Auto) 2.0, Baso % (Auto) 0.4, Absolute Neuts (auto) 4.7, Absolute Lymphs (auto) 2.54, Nucleated RBC % 0, Sodium 138, Potassium 3.9, Chloride 104, Carbon Dioxide 27.0, Anion Gap 7, BUN 8, Creatinine 0.67, Estim Creat Clear Calc 109.63, Est GFR (MDRD) Af Amer 127, Est GFR (MDRD) Non-Af 105, BUN/Creatinine Ratio 12.0, Glucose 107 H, Calcium 9.2, Total Bilirubin 0.20, Direct Bilirubin 0.10, AST 41 H, ALT 59 H, Alkaline Phosphatase 161 H, Total Protein 7.9, Albumin 3.0 L, Globulin 4.9 H, Lipase 20, Serum , Qual NEGATIVE Radiology Impression Gallbladder Ultrasound 01/27/23 19:52 IMPRESSION: Cholelithiasis with gallbladder wall thickening and edema. Positive sonographic Wiggins sign. These findings are consistent with acute cholecystitis. Electronically Signed: Mo Roe MD at 21:27 EDT , Assessment & Plan Assessment/Plan (1) Acute cholecystitis: PLAN: Plan Patient currently n.p.o./IV fluids. IV Zosyn was ordered due to acute cholecystitis. Reviewed the anatomy with the patient and discussed the procedure: laparoscopic cholecystectomy with possible cholangiograms, possible open. Review risks including but not limited to bleeding, infection, hernia, bile leak, retained gallstones requiring another procedure ERCP- Endoscopic Retrograde Cholangiopancreatography, injury to another organ (bile ducts, common bile duct, small bowel, etc.) and conversion to an open procedure. All questions were answered. Missy Bunn M.D. Pager: [phone] [facility] [address] [place] [address], [address] [place] [address] Office: [phone]
[2023-01-28 06:49] LABS: Absolute Lymphocyte Count 2.23 X10^3/uL (0.83-4.51); Absolute Neutrophil Count 2.7 X10^3/uL (2.0-7.7); Basophil# 0.02 X10^3/uL; Basophil% 0.4 % (0-1); Eosinophil# 0.17 X10^3/uL; Eosinophils% 3.1 % (0-5); Hematocrit 33.9 % (37-47); Hemoglobin 10.8 g/dL (12.0-15.0); Lymphocyte # 2.23 X10^3/ul (0.83-4.51); Mean Corp Hgb Conc 31.9 g/dL (32-36); Mean Corpuscular Hgb 28.6 pg (27.0-32.0); Mean Corpuscular Volume 89.9 fL (81-99); Monocyte# 0.43 X10^3/uL; Monocyte% 7.7 % (0-10); NRBC Flagged by Analyzer 0 % (0-5); Neutrophil # 2.71 X10^3/uL (2.7-7.7); Neutrophil % 48.6 % (47-70); Platelet Count 255 K/mm3 (150-450); RBC Distribution Width CV 12.4 % (11.6-14.6); RBC Distribution Width SD 40.7 fl (35.1-43.9); Red Blood Count 3.77 M/mm3 (4.2-5.4); White Blood Count 5.6 K/mm3 (4.4-11.0)
[2023-01-28 07:34] LABS: AST(SGOT) 27 U/L (15-37); Alanine Aminotransfer ALT/SGPT 48 U/L (13-56); Albumin, Serum 2.4 g/dL (3.2-5.0); Alkaline Phosphatase 130 U/L (45-117); Anion Gap 5 (5-15); BUN 5 mg/dL (7-18); BUN/Creat Ratio 9.8 RATIO (10-20); Bilirubin, Direct 0.14 mg/dL (0.00-0.30); Chloride 111 mmol/L (98-107); Creatinine, Serum 0.51 mg/dL (0.55-1.02); EST Glomerular Filtration Rate 143 mL/min (>60); Est Glom Filt Rate - Afr Amer 173 mL/min (>60); Estimated Creatinine Clearance 144.02 ml/min; Globulin 4.1 g/dL (2.2-4.2); Glucose 94 mg/dL (74-106); Potassium 3.7 mmol/L (3.5-5.1); Protein, Total 6.5 g/dL (6.4-8.2); Sodium Level 141 mmol/L (136-145)
--- NOTE | 2023-01-28 08:00 | GALL_PTH ---
PATIENT: FABBY RIVERO LOC: MS3 U#:[id number] AGE/SX: 37/F ROOM: CA317 RE01/27/[address]: Dr. Missy Bunn MD : 1985 BED: 1 DIS: 01/28/2023 SPEC #: [id number] RECD: 01/28/23 13:53 STATUS: JOSE GUADALUPE REGabbie #: [id number] DANAE: 01/28/23 08:[address]: Missy Bunn DEPT: SURGICAL PATHOLOGY RECD BY: Adry Bunn ENTERED: 01/29/23 09:49 SP TYPE: PRIYANKA ALCOCER DR: Dr. Johnson Degroot MD Tissues: Gallbladder, NOS Procedures: Surgery Specimen Level III HEADER OPERATION: Laparoscopic cholecystectomy PRE-OP DIAGNOSIS: Acute cholecystitis TISSUE SUBMITTED: Gallbladder MICROSCOPIC DIAGNOSIS Gallbladder, cholecystectomy: Acute and chronic, focally ulcerated cholecystitis, cholelithiasis and cholesterolosis. SJ:ashley 01/30/2023 MICROSCOPIC DESCRIPTION Slides are reviewed. GROSS DESCRIPTION Received is one container labeled with the patient's name and designated gallbladder. The specimen consists of a previously, partially opened gallbladder measuring 9.0 cm in length and up to 3.5 cm in diameter. The external surface is pink-rachel, smooth and glistening for the most part. Focally it is granular, hemorrhagic and contains cautery artifact. No bile is identified. Present in the container are three mulberry, greenish-yellow stones measuring in aggregate 3.0 x 2.5 x 1.2 cm and 1.2 to 1.5 cm in greatest dimension. The mucosa also shows several yellowish streaks consistent with cholesterolosis. The gallbladder wall measures up to 0.7 cm in thickness. Compensation Consultant sections from the gallbladder and the cystic duct are submitted in two cassettes. / MOHAN:ashley 01/29/2023 TC:2 CPT: 14393
[2023-01-28] MEDS: Pantoprazole Sodium 40 MG in 0.9% Normal Saline (100mL MB+) 100 ML 330 MG IV (09:06)
[2023-01-28] MEDS: 0.9% Normal Saline (1000mL) 1,000 ML 120 ML IV ×2 (09:06→14:12)
--- NOTE | 2023-01-28 10:26 | NURSING ---
surgery/dr ramírez called to say they now have opening in OR for pt who has been NPO all night/charge nurse sent pt to OR while this nurse unavailable
--- NOTE | 2023-01-28 11:00 | RAD_ITS ---
EXAM: FL CHOLANGIOGRAPHY AND/OR PANCREATOGRAPHY CLINICAL INDICATION: PAIN TECHNIQUE: Fluoroscopic cholangiogram and/or pancreatography of the right upper quadrant. Fluoroscopic guidance was provided by a physician. COMPARISON: No relevant prior studies available. FINDINGS: Contrast injected into the cystic duct at the time of laparoscopic cholecystectomy fail to visualize the biliary tree. RAD/Cholangiogram/ O R,Initial IMPRESSION: Nondiagnostic exam. Electronically Signed: Jayden Cantu MD at 12:20 EDT ,
[2023-01-28] MEDS: Bupivacaine Mpf 0.5% 30 ML VIAL (12:27)
--- NOTE | 2023-01-28 12:30 | OP.PCM_ITS ---
Report of Operation Date of Procedure: 01/28/23 Pre-Operative Diagnosis: Acute cholecystitis Surgery/Procedure Performed:: Laparoscopic cholecystectomy with attempted cholangiograms Surgeon: Missy Bunn [employer] police officer: Gennaro Marrero Anesthesiologist: Armen Buckley Special Medications: Zosyn 3.375 g IV every 8 hours on the floor for acute cholecystitis Specimen's removed: Gallbladder Description of Procedure: Indications: this is a 37 year-old female who developed abdominal pain/nausea/vomiting and on workup was found to have acute cholecystitis, cholelithiasis, with a normal common bile duct. Laparoscopic cholecystectomy was elected. Description procedure: The patient was placed on operating table in supine position. A timeout was completed verifying correct patient, procedure, site, position and special equipment prior to beginning procedure. General Anesthesia was induced. The abdomen was prepped and draped in usual sterile fashion. An incision was made in the natural skin line above the umbilicus. The fascia was elevated and incised. The peritoneum was elevated and incised. Entry into the peritoneum was confirmed visually and no bowel was noted in the vicinity of the incision. Garcia trocar was placed. The abdomen was insufflated with carbon dioxide to a pressure of 12-15 mmHg. Patient tolerated insufflation well. The laparoscope was then inserted and abdomen inspected. No injuries from initial trocar placement were noted. Additional trochars were then inserted in the following locations 5 mm trocar in the epigastrium and 2 more 5 mm trochars along the right costal margin. The abdomen was inspected no abnormalities were found. The table is placed in reverse Trendelenburg position with the right side up. The dome of the gallbladder was grasped with atraumatic grasper passed through the lateral port and retracted over the dome of the liver. Infundibulum was then grasped with atraumatic grasper through the midclavicular port and retracted to the right lower quadrant. This maneuver exposed Calot's triangle. The peritoneum overlying the gallbladder infundibulum was then incised and cys tic duct and artery identified and circumferentially dissected. Campos catheter was used for cholangiograms-however only showed filling into the gallbladder?cholangiograms were aborted. The cystic duct and artery were then doubly clipped and divided close to the gallbladder. The gallbladder then dissected from its peritoneal attachments by electrocautery. Hemostasis was checked and the gallbladder and contained stones were removed using the endoscopic retrieval bag through the umbilical port. The gallbladder is passed off table as specimen. The gallbladder fossa was irrigated with saline and Erby was used for hemostasis. There is no evidence of bleeding from the gallbladder fossa or cystic artery leakage of bile from the cystic duct stump. Secondary trochars removed under direct vision. No bleeding was noted the trocar sites. The laparoscope was withdrawn and umbilical trocar removed. The abdomen was allowed to collapse. The fascia of the 12 mm trocar was closed with a [id number] 0 Vicryl suture. The skin was closed with sutures of 4-0 Monocryl and Steri-Strips. The patient was extubated. The patient tolerated procedure well and was taken to the postanesthesia care unit in stable condition. Complications none
--- NOTE | 2023-01-28 12:35 | EX.PCM.DISCH ---
Discharge Instructions Diet Discharge Diet: Light diet - advance as tolerated Activity Discharge Activity: May Not Drive (while taking narcotic pain medications.) May shower in (days): 1 Lifting Restrictions: no lifting >20 lbs x 2 wks, no strenuous exercise for 4 wks Dressing / Incision Call your doctor if your incision/area has: Continuous Slow Oozing, Sudden Increased Bleeding, Increased Pain/ Swelling, Increased Redness, Foul Smelling Discharge and Swelling at the incision site Call your doctor if you observe: Fever of 101 or Higher Remove Dressing in: 2 days Cleanse incision/area with: Soap & Water Additional Dressing/Incision Instructions:: Steri-Strips will fall off in 7 to 10 days, if they do not fall off okay to remove after 10 days. Follow Up Care Please Follow Up With: Missy Bunn MD When: Call the office for a follow-up appointment 2 weeks; after 5 PM and on the weekends call [phone] with any concerns. Test Results: Test results from this visit will be discussed in further detail at your follow-up appointment, if applicable. Discharge Plan Admission Admit Date/Time: 01/27/23 21:49 Attending Provider: Missy Bunn Primary Care Provider: Johnson Degroot Instructions Additional Instructions / Restrictions: Okay to take ibuprofen 400-600 mg PO q6hr PRN along with the Percocet. Avoid Tylenol since there is already Tylenol in the Percocet. Take all pain meds with food. Percocet can cause constipation recommend taking daily stool softener (i.e. Colace/docusate) while taking the pain meds. Recommend starting some MiraLAX in 1-2 days if no bowel movement. If still no bowel movement the next day recommend taking magnesium citrate half the bottle and waiting 4-6 hours if still no results take the other half the bottle. Discharge Orders/Prescriptions Prescriptions: New oxycodone-acetaminophen 5-325 mg tablet 1 - 2 tab PO Q6H PRN (Reason: pain) 3 Days Qty: 14 0RF Continued norgestimate-ethinyl estradiol [Alexander-Linyah] 0.25-35 mg-mcg tablet 1 tab PO DAILY Patient Comments: TAKE 1 TABLET BY MOUTH EVERY DAY x84d Held phentermine 37.5 mg tablet 37.5 mg PO DAILY Hold Instructions: For 2 to 3 weeks from surgery Patient Comments: Take 1 tablet by mouth once daily for 30 days. Referrals / Follow Up: Johnson Degroot MD [Primary Care Provider] - Johnson Degroot MD [[facility]] - Disposition Disposition (needs filled in before D/C Order can be placed): Home, Self Care
[2023-01-28] MEDS: oxyCODONE 5 MG Tablet PO ×3 (14:04→18:06)
[2023-01-28] MEDS: Acetaminophen 325 MG Tablet 650 MG PO (15:04)
--- NOTE | 2023-01-28 18:00 | EKG12_ITS ---
Test Reason : AM EKG Blood Pressure : / mmHG Vent. Rate : 079 BPM Atrial Rate : 079 BPM P-R Int : 124 ms QRS Dur : 080 ms QT Int : 376 ms P-R-T Axes : 034 022 035 degrees QTc Int : 431 ms Normal sinus rhythm Normal ECG When compared with ECG of 10-MAR-2018 20:33, No significant change was found Confirmed by LIANNA MAR, SALVADOR ([id number]), news assignment editor JER HOLLOWAY ([id number]) on 02/06/2023 9:52:28 AM Referred By: DIANA Confirmed By:SALVADOR DSOUZA MD
== END 2023-01-28 18:41 | disposition home or self-care (01) ==
LOC: ED 21:56 → MS3 22:09
PROVIDERS: Admitting Provider Surgery; Emergency Provider Emergency Medicine; PCP Family Medicine; Visit Provider Surgery
PROC: (CPT 47610; principal; 2023-01-28 07:40)
DX: K80.12 Calculus of gallbladder with acute and chronic cholecystitis without obstruction (principal); F17.210 Nicotine dependence, cigarettes, uncomplicated
CPT/HCPCS: 47563; 00790; 36415; 74300; 76000; 76705; 80048; 80076; 83690; 84703; 85025; 88304; 93005; 94668; 96361; 96365; 96366; 96367; 96375; 99252; 99284; 99406; J7030; J7050; A4216; G0463; J2405